=== PATIENT | male | born 1995 | race African-American/Black ===

== ENCOUNTER 2019-04-11 09:54 | Emergency (ER) | payer MEDICAID ==
[~2019-04-11] VITALS: Ht 190.5 cm; Wt 91.0 kg
[2019-04-11] MEDS ORDERED: ALPRAZOLAM 0.5 MG TABLET PO ONE (12:00)
[2019-04-11 13:11] VITALS: BP 156/86
== END 2019-04-11 13:53 | disposition home or self-care (01) ==
LOC: ER 09:54
DX: F41.0 Panic disorder [episodic paroxysmal anxiety] (principal); Z86.73 Personal history of transient ischemic attack (TIA), and cerebral infarction without residual deficits
CPT/HCPCS: 99283; 99284